=== PATIENT | male | born 1955 | race Caucasian/White ===

== ENCOUNTER 2019-09-07 11:18 | Emergency (ER) | payer MEDICARE, BC ==
[2019-09-07] MEDS ORDERED: 0.9 % SODIUM CHLORIDE 1,000 ML BAG IV ONE (11:37)
[2019-09-07] MEDS ORDERED: ACETAMINOPHEN 1,000 MG/100 ML BTL IVPB ONE (11:38)
--- NOTE | 2019-09-07 11:42 | Emergency Department Record ---
History of Present Illness - General Chief complaint: Male Urogenital Problem Stated complaint: GROIN PAIN Time Seen by Provider: 09/07/19 11:29 Source: Patient, Family Mode of Arrival: Ambulatory Limitations: No limitations - History of Present Illness Initial comments: The patient is here due to AP for the last month which got worse yesterday. The pain is sharp and stabbing mainly in the L groin with radiation to the L flank and L testicle. There is no nausea or vomiting with the pain. He also denies any dysuria or fever. The patient has no hx of kidney stones in the past. When he stands and squats down the pain is resolved. MD Complaint: Other Onset/Timin -: Days(s) Location: Left inguinal region, Left testicle Radiation: LLQ Severity scale (1-10): 9 Quality: Sharp Consistency: Constant - Related Data Home Medications Medication Instructions Recorded Confirmed Last Taken Aspirin [Aspir-Low] 81 mg PO DAILY 09/07/19 09/07/19 09/06/19 Carbidopa/Levodopa [Rytary ER 1 each PO DAILY 09/07/19 09/07/19 09/07/19 36.25 mg-145 mg Cap] Cholecalciferol (Vitamin D3) 1,000 unit PO DAILY 09/07/19 09/07/19 09/06/19 [Vitamin D3] Cyanocobalamin (Vitamin B-12) 1,000 mcg PO DAILY 09/07/19 09/07/19 09/06/19 [Vitamin B-12] Gabapentin 300 mg PO DAILY 09/07/19 09/07/19 09/06/19 Mirabegron [Myrbetriq] 50 mg PO QHS 09/07/19 09/07/19 09/06/19 Ropinirole HCl [Ropinirole ER] 2 mg PO QHS 09/07/19 09/07/19 09/06/19 Previous Rx's Medication Instructions Recorded Ciprofloxacin HCl [Cipro] 500 mg PO Q12HR #14 tablet 09/07/19 Allergies Allergy/AdvReac Type Severity Reaction Status Date / Time Penicillins Allergy PT UNSURE Verified 09/07/19 11:30 OF REACTION Travel/Exposure Screening - Travel/Exposure Within Last 30 Days Have you traveled within the last 30 days?: No - Travel/Exposure Within Last Year Have you traveled outside the [place] in the last year?: No - Additonal Travel/Exposure Details Have you been exposed to anyone with a communicable illness?: No - Travel Symptoms Symptom Screening: None Review of Systems Constitutional: Denies: Chills, Fever Eyes: Denies: Eye discharge ENT: Denies: Congestion Respiratory: Denies: Cough, Dyspnea Cardiovascular: Denies: Chest pain Endocrine: Denies: Fatigue Gastrointestinal: Reports: Abdominal pain. Denies: Diarrhea, Nausea, Vomiting Genitourinary: Denies: Hematuria Musculoskeletal: Denies: Arthralgia, Back pain Skin: Denies: Bruising Past Medical History - SOCIAL HISTORY Smoking Status: Never smoker Alcohol Use: None Drug Use: None - RESPIRATORY Hx Respiratory Disorders: No - CARDIOVASCULAR Hx Cardio Disorders: No - NEURO Hx Neuro Disorders: Yes Comment:: Parkinsons - GI Hx GI Disorders: Yes Hx Hiatal Hernia: Yes - Hx Genitourinary Disorders: No - ENDOCRINE Hx Endocrine Disorders: No - MUSCULOSKELETAL Hx Musculoskeletal Disorders: No - PSYCH Hx Psych Problems: No - HEMATOLOGY/ONCOLOGY Hx Hematology/Oncology Disorders: No Family Medical History Any Significant Family History?: No Physical Exam - General General Appearance: Alert, Oriented x3, Cooperative, No acute distress - Head Head exam: Atraumatic, Normocephalic, Normal inspection - Eye Eye exam: Normal appearance - ENT Throat exam: Normal inspection. negative: Tonsillar erythema, Tonsillar exudate - Neck Neck exam: Normal inspection, Full ROM. negative: Tenderness - Respiratory Respiratory exam: Normal lung sounds bilaterally. negative: Respiratory distress - Cardiovascular Cardiovascular Exam: Regular rate, Normal rhythm, Normal heart sounds - GI/Abdominal GI/Abdominal exam: Soft, Normal bowel sounds, Other (Neg for inguinal hernia.). negative: Distended, Guarding, Rebound, Rigid, Tenderness (The abdomen is very soft and nontender in all 4 quads.) - exam: Circumcision, Normal inspection. negative: Scrotal swelling, Testicular tenderness, Urethral discharge - Extremities Extremities exam: Normal inspection, Full ROM, Normal capillary refill. negative: Tenderness - Neurological Neurological exam: Alert, Normal gait. negative: Abnormal gait, Motor sensory deficit - Psychiatric Psychiatric exam: negative: Anxious Course Vital Signs 09/07/19 11:20 Temperature 97.7 F Pulse Rate 55 L Respiratory 16 Rate Blood Pressure 158/92 Pulse Ox 98 - Reevaluation(s) Reevaluation #1: The patient is doing very well at this time. Presently his pain has resolved. On exam he has no further abdominal tenderness but still does have mild L testicle tenderness. There is no inguinal hernia present. Due to the testicle pain we will order an US to be sure of no arterial vascular issues. 09/07/19 13:48 Reevaluation #2: The patient is doing very well at this time. He is presently pain free without any complaints. I did discuss the neg US with the patient and the need to F/U with his PCP later this week. 09/07/19 15:52 Medical Decision Making - Data Complexity MDM Data: Labs Ordered and/or Reviewed, X-Ray Ordered and/or Reviewed - Lab Data Result diagrams: 09/07/19 11:50 09/07/19 11:50 - Radiology Data Radiology results: Report reviewed (Abd/pelvis CT: Neg for any acute changes. Scrotal US: Neg for any acute changes.) Disposition Disposition: Discharge Clinical Impression: Left groin pain Disposition: Home, Self-Care Condition: (2) Stable Instructions: Groin Pain (ED) Additional Instructions: Please use Tylenol or Motrin for pain and please take the Cipro as directed. Please see your family doctor later this week for discharge and return to the ER for any worsening issues, pain, fever, or vomiting. Prescriptions: Ciprofloxacin HCl [Cipro] 500 mg PO Q12HR #14 tablet Forms: Patient Portal Access Time of Disposition: 15:54 Quality - Quality Measures Quality Measures: N/A - Blood Pressure Screening View Details: Yes Does Patient Have Any of the Following: No Blood Pressure Classification: Hypertensive Reading Systolic Measurement: 142 Diastolic Measurement: 74 Screening for High Blood Pressure: < First Hypertensive BP, F/U Documented > [G8950] First Hypertensive Follow-up Interventions: Referral to alternative/primary care provider.
[2019-09-07 12:03] LABS: ABSOLUTE NEUTROPHIL COUNT 5.65; BASO % 0.3 % (0-6); EOS % 2.5 % (0-6); GRAN % 73.2 % (47-80); HEMATOCRIT 42.5 % (42.0-52.0); HEMOGLOBIN 13.4 gm/dl (14.0-18.0); LYMPH % 13.6 % (16-45); MEAN CELL VOLUME 96.2 fl (81-97); MEAN CORPUSCULAR HEMOGLOBIN 30.3 pg (27-33); MEAN CORPUSCULAR HGB CONC 31.5 g/dl (32-36); MEAN PLATELET VOLUME 10.1 fl (7.4-10.4); MONO % 10.4 % (0-9); PLATELET COUNT 211 K/uL (130-400); RED BLOOD COUNT 4.42 M/uL (4.40-5.70); RED CELL DISTRIBUTION WIDTH 12.3 % (11.5-14.5); WHITE BLOOD COUNT W/O DIFF 7.7 K/uL (4.2-12.2)
[2019-09-07 12:13] LABS: BLOOD UREA NITROGEN 20 mg/dL (8-23); CREATININE 0.7 mg/dL (0.7-1.2); EST GLOMERULAR FILTRATION RATE > 60 mL/min
[2019-09-07 12:14] LABS: TOTAL PROTEIN 6.5 g/dL (6.6-8.7)
[2019-09-07 12:16] LABS: GLUCOSE,RANDOM 112 mg/dL (74-109)
[2019-09-07 12:18] LABS: ALT/SGPT < 5 U/L (<41); AST/SGOT 14 U/L (10.0-50.0)
[2019-09-07 12:19] LABS: ALKALINE PHOSPHATASE 61 U/L (40-129); BILIRUBIN,DIRECT < 0.2 mg/dL (0-0.3)
[2019-09-07 12:38] LABS: URINE APPEARANCE CLEAR; URINE BILIRUBIN NEGATIVE (NEGATIVE); URINE BLOOD NEGATIVE (NEGATIVE); URINE COLOR YELLOW; URINE GLUCOSE (UA) NEGATIVE (NEGATIVE); URINE KETONE NEGATIVE (NEGATIVE); URINE LEUKOCYTE ESTERASE SMALL (NEGATIVE); URINE NITRITE NEGATIVE (NEGATIVE); URINE PROTEIN NEGATIVE (NEGATIVE); URINE UROBILINOGEN 0.2 E.U./dL (0.20 - 1.00)
[2019-09-07 12:49] LABS: URINE EPITHELIAL CELLS NONE SEEN (FEW); URINE RBC NONE SEEN (NONE SEEN)
--- NOTE | 2019-09-07 13:33 | CT SCAN REPORT ---
EXAMINATION: CT Abdomen and Pelvis without IV Contrast EXAM DATE: 09/07/2019 12:13 PM TECHNIQUE: Standard protocol CT imaging of the abdomen and pelvis was performed without intravenous c ontrast. INDICATION: L groin pain COMPARISON: None ENCOUNTER: Not applicable CT ABDOMEN AND PELVIS FINDINGS: Lung Bases: Mild atelectatic change left lower lobe. Hepatobiliary: The liver has a normal size with a smooth surface. There is no biliary dilatation and the gallbladder is unremarkable. Pancreas: The pancreas is normal. Spleen: The spleen is not enlarged. Adrenals: The adrenal glands are normal. Kidneys, Ureters, & Bladder: Both kidneys have a normal size and morphology. There is no hydronephro sis. No renal calculi are present. Both ureters have a normal course and caliber and the urinary blad lola a normal morphology and uniform wall thickness. No ureteral or bladder calculi are identified. Gastrointestinal: The stomach and small bowel are normal with no obstruction or inflammation. The kasie endix is not identified. The large bowel is within normal limits. Reproductive Organs: Prostate enlargement. Lymphatic System: There is no adenopathy within the abdomen or pelvis. Vasculature: Normal caliber abdominal aorta with mild atherosclerotic disease. Peritoneum: No free fluid, free air, or inflammation Abdominal wall & Musculoskeletal: No suspicious bone lesions. Degenerative disc space narrowing at L4 -5 and L5-S1. Assessment of the solid organs, soft tissues, and vascular structures is overall limited on noncontra st imaging, IMPRESSION: Incidental findings as above. Dictated by: Lorenzo Lezama DO on 09/07/2019 12:49 PM. .
[2019-09-07] MEDS ORDERED: KETOROLAC 30 MG/ML VIAL IVP ONE (13:43)
[2019-09-07] MEDS ORDERED: CIPROFLOXACIN HCL 500 MG TABLET PO ONE (13:44)
--- NOTE | 2019-09-07 15:42 | ULTRASOUND REPORT ---
EXAMINATION: Ultrasound of the Scrotum EXAM DATE: 09/07/2019 3:28 PM TECHNIQUE: Ultrasound of the scrotum and contents INDICATION: L testicle pain COMPARISON: None FINDINGS: Testicles: The right testicle measures 3.2 x 2.0 x 2.9 cm in dimension. The left testicle measures 3.3 x 1.9 x 2.0 cm in dimension. The testicles have a normal homogeneous echogenicity. No mass is present. Epididymides: The epididymides are normal. Scrotum: Small bilateral hydroceles are shown.. COMPLETE DUPLEX DOPPLER OF THE TESTICLES: Duplex Doppler was performed to assess for testicular torsi on and epididymitis. Color flow imaging shows symmetric blood flow in the testicles and epididymide s. The intratesticular arterial and venous spectral waveforms of the testicles are normal. IMPRESSION: Small bilateral hydroceles. No testicular torsion Dictated by: Kenyon Daniels MD on 09/07/2019 3:36 PM. .
== END 2019-09-07 16:01 | disposition home or self-care (01) ==
LOC: ER 11:18
DX: R10.32 Left lower quadrant pain (principal); N50.812 Left testicular pain
CPT/HCPCS: 99284 ×2; 96365; 96375; 85025; 80076; 80048; 81001; 76870; 74176; J1885; J7030